=== PATIENT | male | born 1985 | race Caucasian/White ===

== ENCOUNTER 2025-01-07 01:48 | Emergency (ER) | payer BC, SELFPAY ==
--- NOTE | 2025-01-07 | ECG_ITS ---
Test Reason : chest pain Blood Pressure : */* mmHG Vent. Rate : 77 BPM Atrial Rate : 77 BPM P-R Int : 158 ms QRS Dur : 96 ms QT Int : 392 ms P-R-T Axes : 73 61 52 degrees QTcB Int : 443 ms Normal sinus rhythm Normal ECG No previous ECGs available Referred By: Generic ED Physician Electronically Signed By: Ayush Patterson
--- NOTE | ~2025-01-07 | XR_ITS ---
CLINICAL HISTORY: pain 1 view abdomen Comparison: None provided Findings: Bowel-gas pattern is within normal limits. There is a moderate amount of stool in the colon. There is no evidence of bowel obstruction. No calcifications are seen within the regions of the kidneys or ureters. Impression: Bowel-gas pattern is within normal limits. This document has been electronically signed by: Sly Park MD on 01/07/2025 04:13:51
[2025-01-07 01:58] VITALS: BP 125/90; PULSE 66; RESP 18; TEMP 36.5; O2SAT 98; BMI 22.4
[2025-01-07 02:18] LABS: Appearance Urine Clear; Glucose Urine UA Negative (Negative); PH 6.0 (5.0-9.0); Specific Gravity - Urine <= 1.005 (1.005-1.025); UMIC TRIGGER UACC YES
[2025-01-07 02:23] LABS: UACC Culture Trigger YES
[2025-01-07 02:29] LABS: MANUAL DIFF FLAG NO
[2025-01-07 02:31] LABS: Hematocrit 44.9 % (42.0-52.0); Hemoglobin 16.0 g/dl (14.0-18.0); Imm Gran Abs Auto 0.04 X10*3/uL (0.00-0.03); Imm Gran Pct Auto 0.3 % (0.0-0.4); Lymphocytes Absolute Auto 2.6 X10*3/uL (1.2-4.9); Mean Corpuscular HGB Conc 35.6 g/dl (31.0-36.0); Mean Corpuscular Hemoglobin 30.0 pg (27.0-33.0); Mean Corpuscular Volume 84.2 fL (80.0-98.0); NRBC Abs Auto 0.000 X10*3/uL (0.0-0.012); NRBC Pct Auto 0.0 /100WBC (0.0-0.2); Platelet Count 253 X10*3/uL (160-400); Red Blood Count 5.33 X10*6/uL (4.60-5.80); White Blood Count 12.5 X10*3/uL (4.8-10.8)
[2025-01-07] MEDS: Sucralfate Oral Suspension 1 GM/10 ML ORAL.SUSP PO (02:46)
--- NOTE | 2025-01-07 02:49 | PC.NURSE ---
PA at bedside with pt. pt medicated per mar at this time. pt reports upper epigastric burning with no relief with tums
[2025-01-07 02:51] LABS: Anion Gap 14 (12-20)
[2025-01-07 02:53] LABS: Troponin-I High Sensitivity < 2.7 ng/L (<3.5-35.0)
[2025-01-07 02:54] LABS: Alanine Aminotransferase 30 U/L (0-40); Albumin Level 4.7 g/dL (3.5-5.0); Alkaline Phosphatase 99 U/L (39-117); Aspartate Amino Transferase 28 U/L (5-37); Blood Urea Nitrogen 23 mg/dL (9-16); Calcium 9.8 mg/dL (8.4-10.2); Carbon Dioxide 27 mmol/L (22-29); Chloride 102 mmol/L (96-108); Creatinine Clr Calc Pharmacy 105.0; Estimated Glomerular Filt Rate > 60; Lipase 68 U/L (8-78); Magnesium 2.1 mg/dL (1.6-2.6); Potassium 3.6 mmol/L (3.3-5.1); Sodium 139 mmol/L (135-145); Total Protein 7.6 g/dL (6.5-8.0)
--- NOTE | 2025-01-07 04:31 | ED_ITS ---
HPI - General Adult General Chief complaint: Abdominal Pain Stated complaint: chest pain Time Seen by Provider: 01/07/25 02:36 Source: patient Limitations: no limitations History of Present Illness ED Provider: Syeda Whitlock PA-C HPI narrative: 39-year-old male presents with epigastric discomfort x1 week. Pain over epigastric region with radiation to central chest. Patient states ?it feels like my chest is on fire?. Patient has been using Tums without relief of symptoms. Patient denies abdominal distention, constipation, nausea vomiting or inability to pass flatus. Patient has no formal diagnosis of GERD. Related Data Previous Rx's ?Medication ?Instructions ?Recorded sucralfate 100 mg/mL oral 10 ml PO QID PRN indigestion #300 01/07/25 suspension (Carafate) mL Allergies Allergy/AdvReac Type Severity Reaction Status Date / Time No Known Allergies Allergy Verified 01/07/25 02:00 Review of Systems 2 Review of Systems: Yes all other systems are reviewed and are negative Constitutional: Constitutional: Denies fatigue and Denies fever(s) Cardiovascular: Cardiovascular: Denies chest pain and Denies dyspnea Respiratory: Respiratory: Denies dyspnea Gastrointestinal: Gastrointestinal: Reports abdominal pain, Denies bloating, Denies constipation, Reports dyspepsia and Denies vomiting Endocrine: Endocrine: Denies fatigue PMFSH Past Medical History Attestation statement: The following information was validated with the patient. Social History Social History Smoked in Last 30 Days: No Use of substances other than those prescribed or required for medical reasons: No Advance Directives: No Advance Directives Information Provided: Yes Physical Exam ED Vital Signs: Vital Signs - 24 hr 01/07/25 01:58 Temperature 97.7 F Pulse Rate 66 Respiratory Rate 18 Blood Pressure 125/90 H Pulse Oximetry 98 Oxygen Delivery Method Room Air BMI result Body Mass Index 22.4 Const Other: Alert well-appearing Orientation/consciousness: patient oriented x3 Resp Effort & Inspection: normal respiratory effort Cardio Other: Normal peripheral perfusion GI Other: Abdomen is soft, nontender non distended no guarding Skin Other: Warm dry no rash Neuro General: patient oriented x3, gait normal, no focal motor deficits and CN's II- XI intact bilaterally Psych Other: Cooperative Medications Administered Discontinued Medications Generic Name Dose Route Start Last Admin Trade Name Freq PRN Reason Stop Dose Admin Sucralfate 1 gm 01/07/25 02:42 01/07/25 02:46 Sucralfate Oral Suspension 1 Gm/10 Ml Oral.Susp PO 01/07/25 02:43 1 gm ONCE ONE Administration Medical Decision Making Medical Decision Making [facility] Narrative: 39-year-old male presents with epigastric discomfort x1 week. Pain over epigastric region with radiation to central chest. Patient states ?it feels like my chest is on fire?. Patient has been using Tums without relief of symptoms. Patient denies abdominal distention, constipation, nausea vomiting or inability to pass flatus. Patient has no formal diagnosis of GERD. No chronic issues History: Per patient I have considered the following differential diagnoses: GERD/gastritis, perforated peptic ulcer, constipation, bowel obstruction, biliary colic, cholecystitis, pancreatitis , atypical presentation for ACS Plan: Given distribution of discomfort, I am considering underlying biliary versus gastric versus pancreatic etiology as cause for symptoms. His presentation is most consistent with poorly controlled acid reflux. There was no focal right upper quadrant or left upper quadrant pain to suggest biliary pathology or pancreatic pathology. Screening labs were obtained from triage LFTs and lipase are within normal range. We will be giving Carafate. The patient has no obstructive symptoms, he denies constipation, obtaining a KUB to assess his stool burden, constipation is a likely trigger for his acid reflux. Atypical presentation for ACS was considered, EKG and troponin obtained, however the patient's heart score is 0, he has no risk factors for coronary artery disease. I have independently reviewed the following tests: Labs: Slight leukocytosis, not anemic, no electrolyte abnormality, troponin negative, urine not infected CLINICAL HISTORY: pain 1 view abdomen Comparison: None provided Findings: Bowel-gas pattern is within normal limits. There is a moderate amount of stool in the colon. There is no evidence of bowel obstruction. No calcifications are seen within the regions of the kidneys or ureters. Impression: Bowel-gas pattern is within normal limits. Differential Diagnosis Differential Diagnoses: The differential diagnosis associated with the presentation includes See medical decision-making Admission/Observation Consideration of admission/observation: Escalation of care including admission/observation considered Not applicable Lab Data [facility] Lab Attestation statement: I reviewed the patient's lab results. 01/07/25 02:24 01/07/25 02:24 Labs: Lab Results 01/07/25 01/07/25 Range/Units 02:08 02:24 WBC 12.5 H (4.8-10.8) X10*3/uL RBC 5.33 (4.60-5.80) X10*6/uL Hgb 16.0 (14.0-18.0) g/dl Hct 44.9 (42.0-52.0) % MCV 84.2 (80.0-98.0) fL MCH 30.0 (27.0-33.0) pg MCHC 35.6 (31.0-36.0) g/dl RDW 11.7 (11.0-16.0) % Plt Count 253 (160-400) X10*3/uL MPV 10.2 (9.4-12.4) fL Immature Gran % (Auto) 0.3 (0.0-0.4) % Neut % (Auto) 64.7 (45-73) % Lymph % (Auto) 20.4 (20-40) % [place] % (Auto) 9.4 (2-11) % Eos % (Auto) 4.2 H (0-4) % Baso % (Auto) 1.0 (0-2) % Lymph # (Auto) 2.6 (1.2-4.9) X10*3/uL [place] # (Auto) 1.2 (0.1-1.2) X10*3/uL Eos # (Auto) 0.5 H (0.0-0.4) X10*3/uL Baso # (Auto) 0.1 (0.0-0.2) X10*3/uL Abs Immat Gran (auto) 0.04 H (0.00-0.03) X10*3/uL Absolute Neuts (auto) 8.1 (2.0-8.3) x10*3/uL Absolute Nucleated RBC 0.000 (0.0-0.012) X10*3/uL Nucleated RBC % (auto) 0.0 (0.0-0.2) /100WBC Sodium 139 (135-145) mmol/L Potassium 3.6 (3.3-5.1) mmol/L Chloride 102 (96-108) mmol/L Carbon Dioxide 27 (22-29) mmol/L Anion Gap 14 (12-20) BUN 23 H (9-16) mg/dL Creatinine 0.98 (0.5-1.4) mg/dL Estim Creat Clear Calc 105.0 Estimated GFR > 60 Random Glucose 109 (60-115) mg/dL Calcium 9.8 (8.4-10.2) mg/dL Magnesium 2.1 (1.6-2.6) mg/dL Total Bilirubin 0.6 (0.0-1.0) mg/dL AST 28 (5-37) U/L ALT 30 (0-40) U/L Alkaline Phosphatase 99 (39-117) U/L Troponin I High Sens < 2.7 (<3.5-35.0) ng/L Total Protein 7.6 (6.5-8.0) g/dL Albumin 4.7 (3.5-5.0) g/dL Lipase 68 (8-78) U/L Urine Color Yellow Urine Appearance Clear Urine pH 6.0 (5.0-9.0) Ur Specific [place] <= 1.005 (1.005-1.025) Urine Protein Negative (Neg-Trace) mg/dL Urine Glucose (UA) Negative (Negative) mg/dL Urine Ketones Negative (Negative) mg/dL Urine Blood Negative (Negative) Urine Nitrite Negative (Negative) Ur Leukocyte Esterase Moderate (2+) H (Negative) Urine RBC 0-2 (0-2) /HPF Urine WBC 11-20 H (0-5) /HPF Ur Squamous Epith Cells 0-2 (0-2) /HPF Urine Bacteria None Seen (None Seen) Hyaline Casts 0-2 (0-2) /LPF Independent Interpretation I performed an independent interpretation of an: EKG Radiology Impression Discussion of test interpretation with radiology: I have reviewed the radiologist's reading. Discharge Plan Discharge Clinical Impression: Constipation, GERD (gastroesophageal reflux disease) Patient Disposition: Home, Self-Care Instructions: Constipation (ED), Diet for Stomach Ulcers and Gastritis (ED), GERD (Gastroesophageal Reflux Disease) (ED) Additional Instructions: You had no lab abnormalities, the x-ray revealed that you are constipated. You are being treated for poorly controlled acid reflux, secondary to constipation. See home care instructions. In regard to the constipation, use [id number] Colace, this is a stool softener, twice a day. Also purchase [id number] MiraLax, use it several times a day, until you begin having multiple large volume bowel movements. In regard to GERD, do not eat 3 hours before bed. Eating smaller more frequent meals throughout the day can help deter symptoms. Some common food triggers are greasy food, spicy food, acidic food, caffeine, carbonation, alcohol. Use the Carafate as needed for indigestion. Follow up with your primary care as needed. Prescriptions: New sucralfate [Carafate] 100 mg/mL suspension 10 ml PO QID PRN (Reason: indigestion) Qty: 300 0RF Rx Instructions: swish in mouth and swallow; use after food/drink Stand Alone Forms: Work/School Release Print Language: Latvian
[2025-01-07 04:48] VITALS: BP 131/86; PULSE 77; RESP 16; TEMP 36.7; O2SAT 98
== END 2025-01-07 04:50 | disposition home or self-care (01) ==
PROVIDERS: Physician Assistant Medical; Emergency Provider Emergency Medicine
DX: K59.00 Constipation, unspecified (principal); K21.9 Gastro-esophageal reflux disease without esophagitis; R10.9 Unspecified abdominal pain; R10.13 Epigastric pain
CPT/HCPCS: 36415; 74018; 80053; 81001; 83690; 83735; 84484; 85025; 87086; 93005; 99283; 99285

== ENCOUNTER → 2025-01-07 01:56 | Outpatient (BNV) | payer BC, SELFPAY | PROVIDERS: Emergency Provider Emergency Medicine; Visit Provider Internal Medicine Cardiovascular Disease | DX: R07.89 Other chest pain (principal) | CPT/HCPCS: 93010 ==

== ENCOUNTER → 2025-01-07 03:29 | Outpatient (BNV) | payer BC, SELFPAY | PROVIDERS: Emergency Provider Emergency Medicine; Visit Provider Radiology Diagnostic Radiology | DX: R10.9 Unspecified abdominal pain (principal) | CPT/HCPCS: 74018 ==

== ENCOUNTER 2025-02-22 00:11 | Emergency (ER) | payer BC, SELFPAY ==
--- NOTE | 2025-02-22 | ECG_ITS ---
Test Reason : CHEST PAIN Blood Pressure : */* mmHG Vent. Rate : 55 BPM Atrial Rate : 55 BPM P-R Int : 130 ms QRS Dur : 96 ms QT Int : 420 ms P-R-T Axes : 31 72 57 degrees QTcB Int : 401 ms Sinus bradycardia Otherwise normal ECG When compared with ECG of 07-Jan-2025 01:56, No significant change was found Referred By: Generic ED Physician Electronically Signed By: ROYA BEACH MD
--- NOTE | ~2025-02-22 | XR_ITS ---
CLINICAL HISTORY: chest pain CHEST X-RAY FRONTAL AND LATERAL VIEWS COMPARISON: None provided. FINDINGS: Frontal and lateral views of the chest were performed. The cardiac size and mediastinal silhouette are within normal limits. The lungs are clear. There are no acute infiltrates or pleural effusions. There is no pneumothorax. IMPRESSION: 1. No acute disease. This document has been electronically signed by: Alex Altman M.D. on 02/22/2025 00:55:26
[2025-02-22 00:24] VITALS: BP 121/77; PULSE 100; RESP 20; TEMP 36.1; O2SAT 98; BMI 23.1
[2025-02-22 00:44] LABS: MANUAL DIFF FLAG NO
[2025-02-22 00:49] LABS: Hematocrit 48.4 % (42.0-52.0); Hemoglobin 16.7 g/dl (14.0-18.0); Imm Gran Abs Auto 0.03 X10*3/uL (0.00-0.03); Imm Gran Pct Auto 0.3 % (0.0-0.4); Lymphocytes Absolute Auto 2.5 X10*3/uL (1.2-4.9); Mean Corpuscular HGB Conc 34.5 g/dl (31.0-36.0); Mean Corpuscular Hemoglobin 30.0 pg (27.0-33.0); Mean Corpuscular Volume 86.9 fL (80.0-98.0); NRBC Abs Auto 0.000 X10*3/uL (0.0-0.012); NRBC Pct Auto 0.0 /100WBC (0.0-0.2); Platelet Count 296 X10*3/uL (160-400); Red Blood Count 5.57 X10*6/uL (4.60-5.80); White Blood Count 11.8 X10*3/uL (4.8-10.8)
[2025-02-22] MEDS: Lidocaine HCl Viscous 2 % 15 ML SOLUTION MUCOUS MEM (01:02)
[2025-02-22] MEDS: Magnesium Hydrox/Alum Hydrox 30 ML ORAL.SUSP PO (01:03)
[2025-02-22 01:04] LABS: Alanine Aminotransferase 35 U/L (0-40); Albumin Level 4.9 g/dL (3.5-5.0); Alkaline Phosphatase 97 U/L (39-117); Anion Gap 14 (12-20); Aspartate Amino Transferase 26 U/L (5-37); Blood Urea Nitrogen 13 mg/dL (9-16); Calcium 9.8 mg/dL (8.4-10.2); Carbon Dioxide 26 mmol/L (22-29); Chloride 107 mmol/L (96-108); Creatinine Clr Calc Pharmacy 104.9; Estimated Glomerular Filt Rate > 60; Magnesium 1.9 mg/dL (1.6-2.6); Potassium 3.3 mmol/L (3.3-5.1); Sodium 144 mmol/L (135-145); Total Protein 7.5 g/dL (6.5-8.0)
[2025-02-22 01:13] LABS: Troponin-I High Sensitivity < 2.7 ng/L (<3.5-35.0)
--- NOTE | 2025-02-22 01:19 | PC.NURSE ---
PA at pt bedside discussing plan at this time
--- NOTE | 2025-02-22 01:22 | ED.CHESTPAIN ---
HPI - Chest Pain General Chief Complaint: Chest Pain Stated Complaint: CP Time Seen by Provider: 02/22/25 00:31 Source: patient, RN notes reviewed and old records reviewed Mode of arrival: ambulatory Limitations: no limitations History of Present Illness ED Provider: Ana MAC narrative: 39-year-old male who denies any past medical history presents for evaluation of epigastric abdominal pain/ chest pain. He reports he has had the symptoms in the past pain Today his symptoms started around 6 p.m. about an hour after eating chicken nuggets for dinner. His symptoms are also always worse at night while lying flat. He had associated nausea and vomited 1 time he denies any history abdominal surgeries He does not take any medications daily. He was seen here a couple of weeks ago for similar complaints pain He had a cardiac workup, KUB and ultimately was discharged home. He reports that his symptoms have been better while he was taking the Carafate but tonight worsened again. He endorses anxiety as well. Related Data Previous Rx's ?Medication ?Instructions ?Recorded sucralfate 100 mg/mL oral 10 ml PO QID PRN indigestion #300 01/07/25 suspension (Carafate) mL omeprazole 20 mg tablet,delayed 20 mg PO DAILY #14 tabs 02/22/25 release Allergies Allergy/AdvReac Type Severity Reaction Status Date / Time No Known Allergies Allergy Verified 02/22/25 00:26 Review of Systems Constitutional: Constitutional: Denies body ache(s), Denies chills, Denies fever(s) and Denies headache(s) Eyes: Eyes: Denies blurry vision ENT: Denies vertigo, Denies dizziness and Denies headache(s) Cardiovascular: Cardiovascular: Reports chest pain and Denies dyspnea on exertion Respiratory: Respiratory: Denies cough and Denies dyspnea on exertion Gastrointestinal: Gastrointestinal: Reports abdominal pain, Denies melena, Denies bloating, Denies hematochezia, Reports nausea and Reports vomiting Musculoskeletal: Musculoskeletal: Denies back pain Integumentary/Breasts: Skin/Breast: Denies rash Neurologic: Denies vertigo, Denies dizziness and Denies headache(s) [facility] Social History Social History Alcohol intake: current Smoked in Last 30 Days: Yes Use of substances other than those prescribed or required for medical reasons: Yes Substance Use Type: Marijuana Substance Use Frequency: Daily Last Used Substance: Hours (ago) Any prior treatment program specific to substance use: No Advance Directives: No Advance Directives Information Provided: Yes Do you have a plan to hurt others: No Plan Physical Exam Vital Signs: Vital Signs: Last Vital Signs Temp 97.0 F 02/22/25 00:24 Pulse 100 02/22/25 00:24 Resp 20 02/22/25 00:24 BP 121/77 02/22/25 00:24 Pulse Ox 98 02/22/25 00:24 O2 Del Method Room Air 02/22/25 00:24 BMI result Body Mass Index 23.1 Const: General: healthy appearing, comfortable, no acute distress, alert and awake Nutritional Appearance: well nourished Orientation/consciousness: patient oriented x3 HEENT: Head: Yes normocephalic and Yes atraumatic Throat: Yes posterior oropharynx normal Eyes: Eyelids: Yes eyelids normal Conjunctivae: conjunctivae normal Sclerae: sclerae normal Corneas: corneas normal Pupils: Equal, round and reactive pupils present EOM: EOMs intact bilaterally Neck: Neck: Yes full ROM Resp: Effort & Inspection: normal respiratory effort, able to speak in complete sentences and not labored Cardio: Rate: regular rate Rhythm: regular rhythm GI: Inspection: No distended Palpation (GI): Soft to palpation, not firm, Tenderness to palpation present (GI) in the epigastrum and in the LUQ; not in the LLQ, not in the RLQ and not in the RUQ, no guarding and not rigid Auscultation: normoactive bowel sounds Skin: General skin exam: elasticity normal Neuro: General: patient oriented x3 Cranial nerves: Yes Equal, round and reactive pupils present and Yes Bilaterally intact EOM present Cognition (Neuro): normal cognition Medications Administered Discontinued Medications Generic Name Dose Route Start Last Admin Trade Name Freq PRN Reason Stop Dose Admin Al Hydroxide/Mg Hydroxide 30 ml 02/22/25 00:54 02/22/25 01:03 Magnesium Hydrox/Alum Hydrox 30 Ml Oral.Susp PO 02/22/25 00:55 30 ml ONCE ONE Administration Lidocaine HCl 15 ml 02/22/25 00:54 02/22/25 01:02 Lidocaine Hcl Viscous 2 % 15 Ml Solution MUCOUS MEM 02/22/25 00:55 15 ml ONCE ONE Administration Ondansetron HCl 4 mg 02/22/25 00:54 02/22/25 01:03 Ondansetron Odt 4 Mg Tab.Gilbert ABDI 02/22/25 00:55 4 mg ONCE ONE Administration Medical Decision Making Medical Decision Making [facility] Narrative: healthy 39-year-old male presents for evaluation of epigastric abdominal pain and chest pain in his worse after eating and worse with lying down. History and exam is most consistent with peptic ulcer disease versus GERD versus gastritis. Also in differential includes pancreatitis, cholelithiasis, atypical ACS presentation. The patient had labs are unremarkable, he does have a mild leukocytosis but no left shift. This could be related to his vomiting prior to coming in. No significant electrolyte abnormalities renal and liver functions normal limits, troponin negative. EKG is nonischemic. The patient is treated with a GI cocktail which he did end up vomiting. The patient has no right upper quadrant tenderness, negative Elizalde's sign, no McBurney's point tenderness or right lower quadrant tenderness. I have a low suspicion for acute cholecystitis for acute appendicitis and therefore CT imaging was deferred at this time. The patient will be discharged to follow up with GI for likely endoscopy Differential Diagnosis Differential Diagnoses: The differential diagnosis associated with the presentation includes as above, peptic ulcer disease, pancreatitis, cholelithiasis Cholecystitis Acute appendicitis ACL Admission/Observation Consideration of admission/observation: Escalation of care including admission/observation considered Lab Data MDM Lab Attestation statement: I reviewed the patient's lab results. as above 02/22/25 00:40 02/22/25 00:40 Labs: Lab Results 02/22/25 Range/Units 00:40 WBC 11.8 H (4.8-10.8) X10*3/uL RBC 5.57 (4.60-5.80) X10*6/uL Hgb 16.7 (14.0-18.0) g/dl Hct 48.4 (42.0-52.0) % MCV 86.9 (80.0-98.0) fL MCH 30.0 (27.0-33.0) pg MCHC 34.5 (31.0-36.0) g/dl RDW 11.8 (11.0-16.0) % Plt Count 296 (160-400) X10*3/uL MPV 10.3 (9.4-12.4) fL Immature Gran % (Auto) 0.3 (0.0-0.4) % Neut % (Auto) 68.5 (45-73) % Lymph % (Auto) 21.2 (20-40) % [place] % (Auto) 7.3 (2-11) % Eos % (Auto) 1.7 (0-4) % Baso % (Auto) 1.0 (0-2) % Lymph # (Auto) 2.5 (1.2-4.9) X10*3/uL [place] # (Auto) 0.9 (0.1-1.2) X10*3/uL Eos # (Auto) 0.2 (0.0-0.4) X10*3/uL Baso # (Auto) 0.1 (0.0-0.2) X10*3/uL Abs Immat Gran (auto) 0.03 (0.00-0.03) X10*3/uL Absolute Neuts (auto) 8.1 (2.0-8.3) x10*3/uL Absolute Nucleated RBC 0.000 (0.0-0.012) X10*3/uL Nucleated RBC % (auto) 0.0 (0.0-0.2) /100WBC Sodium 144 (135-145) mmol/L Potassium 3.3 (3.3-5.1) mmol/L Chloride 107 (96-108) mmol/L Carbon Dioxide 26 (22-29) mmol/L Anion Gap 14 (12-20) BUN 13 (9-16) mg/dL Creatinine 1.01 (0.5-1.4) mg/dL Estim Creat Clear Calc 104.9 Estimated GFR > 60 Random Glucose 108 (60-115) mg/dL Calcium 9.8 (8.4-10.2) mg/dL Magnesium 1.9 (1.6-2.6) mg/dL Total Bilirubin 0.5 (0.0-1.0) mg/dL AST 26 (5-37) U/L ALT 35 (0-40) U/L Alkaline Phosphatase 97 (39-117) U/L Troponin I High Sens < 2.7 (<3.5-35.0) ng/L Total Protein 7.5 (6.5-8.0) g/dL Albumin 4.9 (3.5-5.0) g/dL Independent Interpretation I performed an independent interpretation of an: EKG Interpretation: sinus bradycardia rate of 55 beats minute. QTC within normal limits. No ectopy, no ST changes Tests considered The following testing was considered but not selected: consider CT scan of the abdomen pelvis versus abdominal ultrasound but felt these are not indicated on an emergent basis Discharge Plan Discharge Clinical Impression: Chest pain due to GERD Patient Disposition: Home, Self-Care Instructions: GERD (Gastroesophageal Reflux Disease) (ED) Additional Instructions: your workup in the ER today was reassuring. This includes your EKG, chest x-ray and your blood work. Your history exam is most consistent with GERD, gastritis or peptic ulcer disease. All these diagnosis are made through an endoscopy. Called the [facility] for Gastroenterology tomorrow morning to schedule an appointment. In the meantime take omeprazole 20 milligrams daily for the next 2 weeks. Return for new or worsening symptoms. Avoid spicy, fatty and greasy foods Prescriptions: New omeprazole 20 mg tablet,delayed release (DR/EC) 20 mg PO DAILY Qty: 14 0RF No Action sucralfate [Carafate] 100 mg/mL suspension 10 ml PO QID PRN (Reason: indigestion) Qty: 300 0RF Rx Instructions: swish in mouth and swallow; use after food/drink Referrals: [facility] [place] Gastroenterology Services [Provider Group, Gastroenterology] Referral Note: gerd symptoms, question need for diagnostic endoscopy Stand Alone Forms: Work/School Release Print Language: [place]
[2025-02-22 01:30] VITALS: BP 121/77; PULSE 100; RESP 20; TEMP 36.1; O2SAT 98
== END 2025-02-22 01:51 | disposition home or self-care (01) ==
PROVIDERS: Emergency Provider Emergency Medicine
DX: K21.9 Gastro-esophageal reflux disease without esophagitis (principal); R07.89 Other chest pain; R10.13 Epigastric pain; R11.2 Nausea with vomiting, unspecified; F41.9 Anxiety disorder, unspecified; Z79.899 Other long term (current) drug therapy
CPT/HCPCS: 36415; 71045; 80053; 83735; 84484; 85025; 93005; 96374; 99284; J2470

== ENCOUNTER → 2025-02-22 00:17 | Outpatient (BNV) | payer BC, SELFPAY | PROVIDERS: Emergency Provider Emergency Medicine; Visit Provider Internal Medicine Cardiovascular Disease | DX: R00.1 Bradycardia, unspecified (principal) | CPT/HCPCS: 93010 ==

== ENCOUNTER → 2025-02-22 00:24 | Outpatient (BNV) | payer BC, SELFPAY | PROVIDERS: Visit Provider Radiology Diagnostic Radiology | DX: R07.9 Chest pain, unspecified (principal) | CPT/HCPCS: 71045 ==